=== PATIENT | female | born 1995 | race Two or more races ===

== ENCOUNTER 2020-02-03 18:21 | Emergency (ER) | payer BC ==
[~2020-02-03] VITALS: Ht 167.6 cm; Wt 80.7 kg
[2020-02-03 18:40] VITALS: BP 132/86; Ht 167.6 cm; Wt 80.7 kg
== END 2020-02-03 19:53 | disposition left against medical advice (07) ==
LOC: ED 18:21
DX: R50.9 Fever, unspecified (principal); R05 Cough; M79.10 Myalgia, unspecified site
CPT/HCPCS: Q0092; U0002